=== PATIENT | female | born 1970 | race Caucasian/White ===

== ENCOUNTER 2017-02-11 13:54 | Emergency (ER) | payer MEDICAID, OTHER, SELFPAY ==
[~2017-02-11] VITALS: Ht 170.2 cm; Wt 89.4 kg
[2017-02-11 13:58] VITALS: BP 160/90
== END 2017-02-11 15:30 | disposition home or self-care (01) ==
LOC: ED 15:24
DX: J01.00 Acute maxillary sinusitis, unspecified (principal)
CPT/HCPCS: 99283

== ENCOUNTER 2017-02-14 15:52 | Emergency (ER) | payer MEDICAID ==
[~2017-02-14] VITALS: Ht 170.2 cm; Wt 88.8 kg
[2017-02-14 15:58] VITALS: BP 162/78
== END 2017-02-14 16:58 | disposition home or self-care (01) ==
LOC: ED 16:45
DX: H65.01 Acute serous otitis media, right ear (principal); J01.10 Acute frontal sinusitis, unspecified; J01.00 Acute maxillary sinusitis, unspecified; Z88.2 Allergy status to sulfonamides; Z77.22 Contact with and (suspected) exposure to environmental tobacco smoke (acute) (chronic)
CPT/HCPCS: 99283

== ENCOUNTER 2017-04-09 14:37 | Emergency (ER) | payer MEDICAID ==
[~2017-04-09] VITALS: Ht 170.2 cm; Wt 89.6 kg
[2017-04-09] MEDS ORDERED: ASPIRIN 81 MG TABLET CHEW PO ONE (16:00)
[2017-04-09 16:26] LABS: ASPARTATE AMINO TRANSFERASE 35 U/L (15-37); BLOOD UREA NITROGEN 10 mg/dL (7-18)
[2017-04-09 16:30] LABS: IS PT STATUS REG ER OR PRE ER? YES
[2017-04-09] MEDS ORDERED: RANI75TA12 PO (18:05)
[2017-04-09] MEDS ORDERED: DIPH25CA61 PO (18:05)
[2017-04-09] MEDS ORDERED: ALPR-475 PO (18:05)
[2017-04-09] MEDS ORDERED: ASPIRIN 81 MG TABLET CHEW ONE (18:09)
[2017-04-09 19:24] VITALS: BP 125/88
== END 2017-04-09 19:25 | disposition home or self-care (01) ==
LOC: ED 19:19
DX: R06.00 Dyspnea, unspecified (principal); K21.9 Gastro-esophageal reflux disease without esophagitis; Z88.1 Allergy status to other antibiotic agents; Z88.8 Allergy status to other drugs, medicaments and biological substances; Z91.040 Latex allergy status; Z91.041 Radiographic dye allergy status
CPT/HCPCS: 36415; 71010; 80053; 84484; 85025; 93005; 99285

== ENCOUNTER 2017-04-14 17:29 | Emergency (ER) | payer MEDICAID ==
[~2017-04-14] VITALS: Ht 170.2 cm; Wt 89.7 kg
[~2017-04-14 17:29] MED LIST: ALPR-475 PO; DIPH25CA61 PO; RANI75TA12 PO
[2017-04-14 17:31] VITALS: BP 156/91
[2017-04-14] MEDS ORDERED: IBUPROFEN 200 MG TABLET ONE (18:24)
[2017-04-14] MEDS ORDERED: DIPH,PERTUSS(ACELL),TET VAC/PF 0.5 ML IM-VACC ONE ×2 (18:28→18:30)
[2017-04-14] MEDS ORDERED: IBUPROFEN 200 MG TABLET PO ONE (18:30)
[2017-04-14] MEDS ORDERED: BACITRACIN ZINC OINT 500U/GM, 0.9 GM ONE (18:52)
== END 2017-04-14 18:57 | disposition home or self-care (01) ==
LOC: ED 18:30
DX: S90.221A Contusion of right lesser toe(s) with damage to nail, initial encounter (principal); K21.9 Gastro-esophageal reflux disease without esophagitis; Z88.2 Allergy status to sulfonamides; X58.XXXA Exposure to other specified factors, initial encounter; Y93.89 Activity, other specified; Y92.89 Other specified places as the place of occurrence of the external cause; Y99.8 Other external cause status
CPT/HCPCS: 90471; 90715

== ENCOUNTER 2017-05-14 19:50 | Emergency (ER) | payer MEDICAID ==
[~2017-05-14] VITALS: Ht 170.2 cm; Wt 89.4 kg
[2017-05-14 19:52] VITALS: BP 174/123
[2017-05-14] MEDS ORDERED: BACITRACIN ZINC OINT 500U/GM, 0.9 GM ONE (20:20)
== END 2017-05-14 20:56 | disposition home or self-care (01) ==
LOC: ED 20:00
DX: S60.871A Other superficial bite of right wrist, initial encounter (principal); W55.01XA Bitten by cat, initial encounter; Y93.89 Activity, other specified; Y92.89 Other specified places as the place of occurrence of the external cause; Y99.8 Other external cause status
CPT/HCPCS: 99283

== ENCOUNTER 2017-12-01 14:51 | Emergency (ER) | payer MEDICAID ==
[~2017-12-01] VITALS: Ht 170.2 cm; Wt 88.6 kg
[2017-12-01 14:52] VITALS: BP 153/95
== END 2017-12-01 16:07 | disposition home or self-care (01) ==
LOC: ED 16:00
DX: J01.00 Acute maxillary sinusitis, unspecified (principal); K21.9 Gastro-esophageal reflux disease without esophagitis; J44.9 Chronic obstructive pulmonary disease, unspecified
CPT/HCPCS: 99283

== ENCOUNTER 2018-03-23 13:26 | Emergency (ER) | payer MEDICAID ==
[~2018-03-23] VITALS: Ht 170.2 cm; Wt 90.0 kg
[2018-03-23 13:31] VITALS: BP 174/117
== END 2018-03-23 14:36 | disposition home or self-care (01) ==
LOC: ED 14:20
DX: J02.9 Acute pharyngitis, unspecified (principal); J06.9 Acute upper respiratory infection, unspecified; K21.9 Gastro-esophageal reflux disease without esophagitis; J44.9 Chronic obstructive pulmonary disease, unspecified; D86.9 Sarcoidosis, unspecified; J32.9 Chronic sinusitis, unspecified; Z76.0 Encounter for issue of repeat prescription
CPT/HCPCS: 71046; 99284

== ENCOUNTER 2018-08-26 15:32 | Emergency (ER) | payer MEDICAID ==
[~2018-08-26] VITALS: Ht 170.2 cm; Wt 78.0 kg
[2018-08-26] MEDS ORDERED: PLEASE ENTER HEIGHT AND WEIGHT MC SCH (19:00)
[2018-08-26] MEDS ORDERED: TRIAMCINOLONE ACETONIDE 40 MG/ML, 1ML IM ONE (19:00)
[2018-08-26 19:29] VITALS: BP 150/87
== END 2018-08-26 19:31 | disposition home or self-care (01) ==
LOC: ED 19:00
DX: J44.1 Chronic obstructive pulmonary disease with (acute) exacerbation (principal); K21.9 Gastro-esophageal reflux disease without esophagitis
CPT/HCPCS: 71046; 93005; 96372; 99284; J3301